=== PATIENT | female | born 1980 | race Caucasian/White ===

== ENCOUNTER 2019-07-01 15:42 | Emergency (ER) | payer MEDICAID, OTHER ==
[~2019-07-01] VITALS: Ht 157 cm; Wt 104.8 kg
--- NOTE | 2019-07-01 15:50 | ED General ---
General Stated Complaint: TROUBLE BREATHING,BACK PAIN History of Present Illness Date Seen by Provider: Jul 01, 2019 Time Seen by Provider: 15:50 Initial Comments Patient presenting to emergency department for evaluation of multiple symptoms including cough congestion chills generalized malaise fatigue arthralgias myalgias nausea, headache, back pain and generally not feeling well. She says she has had the symptoms since 3 days ago and she has just been lying around her house. Triage states soa but she denies to me. No cough, vomiting, diarrhea, vision changes, photophobia, neck stiffiness, chest pain, unilateral weakness, numbness, or tingling. She says that she doesn't think she has been eating or drinking very much. She is in no obvious distress with normal vital signs. Allergies and Home Medications Allergies Coded Allergies: acetaminophen (Verified Allergy, Unknown, 07/01/19) codeine (Verified Allergy, Unknown, 07/01/19) hydrocodone (Verified Allergy, Unknown, 07/01/19) oseltamivir (Verified Allergy, Unknown, 07/01/19) tramadol (Verified Allergy, Unknown, 07/01/19) Patient Home Medication List Home Medication List Reviewed: Yes Review of Systems Review of Systems Constitutional: no symptoms reported EENTM: nose congestion, throat pain Respiratory: cough Cardiovascular: no symptoms reported Gastrointestinal: nausea Genitourinary: no symptoms reported Musculoskeletal: no symptoms reported Skin: no symptoms reported Psychiatric/Neurological: No Symptoms Reported All Other Systems Reviewed Negative Unless Noted: Yes Past [id number] Hx Patient Social History Recent Foreign Travel: No Contact w/Someone Who Travel: No Physical Exam Vital Signs Vital Signs - First Documented 07/01/19 15:53 Temp 36.0 Pulse 104 Resp 18 B/P (MAP) 149/79 (102) Pulse Ox 97 Capillary Refill : Height, Weight, BMI Height: '" Weight: lbs. oz. kg; BMI Method: General Appearance: No Apparent Distress, WD/WN HEENT: PERRL/EOMI Neck: Supple Respiratory: Lungs Clear, No Respiratory Distress Cardiovascular: Regular Rate, Rhythm Gastrointestinal: Soft Back: Normal Inspection Extremity: Normal Capillary Refill Neurologic/Psychiatric: Alert, Oriented x3 Skin: Warm/Dry Progress/Results/Core Measures Suspected Sepsis SIRS Temperature: Pulse: Respiratory Rate: Laboratory Tests 07/01/19 15:55: White Blood Count 11.0 Blood Pressure / Mean: Laboratory Tests 07/01/19 15:55: Creatinine 0.59L, Platelet Count 278, Total Bilirubin 0.2 Results/Orders Lab Results Laboratory Tests Test 07/01/19 15:55 07/01/19 17:12 Range/Units White Blood Count 11.0 4.3-11.0 10^3/uL Red Blood Count 4.95 4.35-5.85 10^6/uL Hemoglobin 13.8 11.5-16.0 G/DL Hematocrit 42 35-52 % Mean Corpuscular Volume 84 80-99 FL Mean Corpuscular Hemoglobin 28 25-34 PG Mean Corpuscular Hemoglobin Concent 33 32-36 G/DL Red Cell Distribution Width 13.2 10.0-14.5 % Platelet Count 278 130-400 10^3/uL Mean Platelet Volume 9.6 7.4-10.4 FL Neutrophils (%) (Auto) 65 42-75 % Lymphocytes (%) (Auto) 25 12-44 % Monocytes (%) (Auto) 7 0-12 % Eosinophils (%) (Auto) 3 0-10 % Basophils (%) (Auto) 0 0-10 % Neutrophils # (Auto) 7.2 1.8-7.8 X 10^3 Lymphocytes # (Auto) 2.7 1.0-4.0 X 10^3 Monocytes # (Auto) 0.7 0.0-1.0 X 10^3 Eosinophils # (Auto) 0.4 H 0.0-0.3 10^3/uL Basophils # (Auto) 0.0 0.0-0.1 10^3/uL Sodium Level 138 135-145 MMOL/L Potassium Level 3.7 3.6-5.0 MMOL/L Chloride Level 103 98-107 MMOL/L Carbon Dioxide Level 23 21-32 MMOL/L Anion Gap 12 5-14 MMOL/L Blood Urea Nitrogen 11 7-18 MG/DL Creatinine 0.59 L 0.60-1.30 MG/DL Estimat Glomerular Filtration Rate > 60 BUN/Creatinine Ratio 19 Glucose Level 196 H 70-105 MG/DL Calcium Level 8.8 8.5-10.1 MG/DL Corrected Calcium 9.1 8.5-10.1 MG/DL Magnesium Level 2.1 1.6-2.4 MG/DL Total Bilirubin 0.2 0.1-1.0 MG/DL Aspartate Amino Transf (AST/SGOT) 19 5-34 U/L Alanine Aminotransferase (ALT/SGPT) 25 0-55 U/L Alkaline Phosphatase 108 40-136 U/L Total Protein 7.6 6.4-8.2 GM/DL Albumin 3.6 3.2-4.5 GM/DL Lipase 14 8-78 U/L Urine Color YELLOW Urine Clarity SLT CLOUDY Urine pH 6.0 5-9 Urine Specific [place] 1.025 H 1.016-1.022 Urine Protein NEGATIVE NEGATIVE Urine Glucose (UA) TRACE H NEGATIVE Urine Ketones TRACE H NEGATIVE Urine Nitrite NEGATIVE NEGATIVE Urine Bilirubin NEGATIVE NEGATIVE Urine Urobilinogen 1.0 < = 1.0 MG/DL Urine Leukocyte Esterase NEGATIVE NEGATIVE Urine RBC (Auto) NEGATIVE NEGATIVE Urine RBC 0-2 /HPF Urine WBC 0-2 /HPF Urine Squamous Epithelial Cells 5-10 /HPF Urine Crystals NONE /LPF Urine Bacteria TRACE /HPF Urine Casts NONE /LPF Urine Mucus MODERATE H /LPF Urine Culture Indicated NO Urine Test NEGATIVE NEGATIVE Micro Results Microbiology 07/01/19 Influenza Types A,B Antigen (ANNA) - Final, Complete My Orders Orders - JOEL BUENROSTRO DO Cbc With Automated Diff (07/01/19 16:04) Comprehensive Metabolic Panel (07/01/19 16:04) Influenza A And B Antigens (07/01/19 16:04) Magnesium (07/01/19 16:04) Ua Culture If Indicated (07/01/19 16:04) Lipase (07/01/19 16:04) Hcg,Qualitative Urine (07/01/19 16:04) Ketorolac Injection (Toradol Injection) (07/01/19 16:15) Ns Iv 1000 Ml (Sodium Chloride 0.9%) (07/01/19 16:15) Diphenhydramine Injection (Benadryl Inje (07/01/19 16:15) Ondansetron Injection (Zofran Injectio (07/01/19 16:15) Medications Given in ED Current Medications Medications Dose Ordered Sig/Shankar Route Start Time Stop Time Status Last Admin Dose Admin Diphenhydramine HCl 25 mg ONCE ONCE IVP 07/01/19 16:15 07/01/19 16:16 DC 07/01/19 16:23 25 MG Ketorolac Tromethamine 15 mg ONCE ONCE IVP 07/01/19 16:15 07/01/19 16:16 DC 07/01/19 16:23 15 MG Ondansetron HCl 4 mg ONCE ONCE IVP 07/01/19 16:15 07/01/19 16:16 DC 07/01/19 16:22 4 MG Vital Signs/I&O 07/01/19 15:53 Temp 36.0 Pulse 104 Resp 18 B/P (MAP) 149/79 (102) Pulse Ox 97 Capillary Refill : Progress Note : Progress Note Patient has symptoms most consistent with a viral syndrome given her diffuse alycia n and generally not feeling well. Given patient appears well with normal vital signs benign physical exam and workup she'll be discharged in stable condition. I Told her to take ibuprofen for pain drink plenty of fluids and I will prescribe Zofran for any nausea. She was told to follow with primary care provider within 2-3 days to ensure improvement and come back to the ED sooner with worsening pain fevers vomiting or other general concerns. Patient aware and agreeable with plan and verbalized understanding of the above instructions. Departure Impression Primary Impression: Viral syndrome Disposition: HOME, SELF-CARE Condition: Stable Departure-Patient Inst. Patient Instructions: Viral Syndrome (DC) Scripts Ondansetron (Ondansetron Odt) 4 Mg Tab.rapdis 4 MG PO tid PRN for NAUSEA/VOMITING-1ST LINE, #14 TAB Prov: JOEL BUENROSTRO DO 07/01/19 Ibuprofen (Ibuprofen) 800 Mg Tablet 800 MG PO Q8H PRN for PAIN, #30 TAB 0 Refills Prov: JOEL BUENROSTRO DO 07/01/19 JOEL BUENROSTRO DO Jul 01, 2019 15:50
[2019-07-01] MEDS ORDERED: AMIT25TA9 (16:01)
[2019-07-01] MEDS ORDERED: LEVO75TA6 (16:01)
[2019-07-01] MEDS ORDERED: PREG75CA75 (16:01)
[2019-07-01] MEDS ORDERED: DULO30CA49 (16:01)
[2019-07-01] MEDS ORDERED: KETOROLAC 15 MG/ML VIAL IVP ONE (16:15)
[2019-07-01] MEDS ORDERED: NS IV 1000 ML 1,000 ML IV SCH (16:15)
[2019-07-01] MEDS ORDERED: ONDANSETRON 4 MG/2 ML (SDV) Z0FRAN IVP ONE (16:15)
[2019-07-01] MEDS ORDERED: diphenhydrAMINE 50 MG/ML INJ (BENADRYL) IVP ONE (16:15)
[2019-07-01 16:18] LABS: BASOPHILS % (AUTO) 0 % (0-10); EOSINOPHILS # (AUTO) 0.4 10^3/uL (0.0-0.3); EOSINOPHILS % (AUTO) 3 % (0-10); HEMATOCRIT 42 % (35-52); HEMOGLOBIN 13.8 G/DL (11.5-16.0); LYMPHOCYTES # (AUTO) 2.7 X 10^3 (1.0-4.0); LYMPHOCYTES % (AUTO) 25 % (12-44); MEAN CORPUSCULAR HEMOGLOBIN 28 PG (25-34); MEAN CORPUSCULAR HGB CONC 33 G/DL (32-36); MEAN CORPUSCULAR VOLUME 84 FL (80-99); MEAN PLATELET VOLUME 9.6 FL (7.4-10.4); MONOCYTES # (AUTO) 0.7 X 10^3 (0.0-1.0); MONOCYTES % (AUTO) 7 % (0-12); NEUTROPHILS # (AUTO) 7.2 X 10^3 (1.8-7.8); NEUTROPHILS % (AUTO) 65 % (42-75); PLATELET COUNT 278 10^3/uL (130-400); RED CELL DISTRIBUTION WIDTH 13.2 % (10.0-14.5)
[2019-07-01 16:30] LABS: CARBON DIOXIDE 23 MMOL/L (21-32); CHLORIDE 103 MMOL/L (98-107); POTASSIUM 3.7 MMOL/L (3.6-5.0); SODIUM 138 MMOL/L (135-145)
[2019-07-01 16:31] LABS: ALANINE AMINOTRANSFERASE 25 U/L (0-55); ALBUMIN 3.6 GM/DL (3.2-4.5); ALKALINE PHOSPHATASE 108 U/L (40-136); BILIRUBIN,TOTAL 0.2 MG/DL (0.1-1.0); BUN/CREATININE RATIO 19; CALCIUM 8.8 MG/DL (8.5-10.1); CREATININE SERUM 0.59 MG/DL (0.60-1.30); GFR ESTIMATED > 60; GLUCOSE 196 MG/DL (70-105); LIPASE 14 U/L (8-78); MAGNESIUM 2.1 MG/DL (1.6-2.4); TOTAL PROTEIN 7.6 GM/DL (6.4-8.2)
[2019-07-01 17:38] LABS: BILIRUBIN,URINE NEGATIVE (NEGATIVE); CLARITY,URINE SLT CLOUDY; COLOR,URINE YELLOW; GLUCOSE, URINE (UA) TRACE (NEGATIVE); KETONES,URINE TRACE (NEGATIVE); LEUKOCYTE ESTERASE ,URINE NEGATIVE (NEGATIVE); NITRITE,URINE NEGATIVE (NEGATIVE); PROTEIN,URINE NEGATIVE (NEGATIVE)
[2019-07-01 17:39] LABS: BACTERIA,URINE TRACE /HPF; RBC,URINE 0-2 /HPF; WBC,URINE 0-2 /HPF
[2019-07-01] MEDS ORDERED: ONDA4TAB11 PO (17:49)
[2019-07-01] MEDS ORDERED: IBUP-1780 PO (17:49)
[2019-07-01 18:03] VITALS: BP 108/63
== END 2019-07-01 18:07 | disposition home or self-care (01) ==
LOC: ER FS 15:47
DX: B34.9 Viral infection, unspecified (principal); Z88.6 Allergy status to analgesic agent; Z88.5 Allergy status to narcotic agent; Z88.8 Allergy status to other drugs, medicaments and biological substances
CPT/HCPCS: 36415; 80053; 81000; 83690; 83735; 84703; 85025; 87804; 96374; 96375